=== PATIENT | female | born 1975 | race African-American/Black ===

== ENCOUNTER 2024-05-19 02:38 | Emergency (ER) | payer OTHER ==
[2024-05-19 03:50] VITALS: BP 124/75; PULSE 98; RESP 18; TEMP 98.6; BMI 20.7
[2024-05-19] MEDS ORDERED: ONDANSETRON *ODT* 4 MG TABLET ONE (04:05)
[2024-05-19] MEDS: ONDANSETRON *ODT* 4 MG TABLET SL ONE (04:08)
[2024-05-19 04:49] LABS: EOS % 1.8 % (0-4.5); HEMATOCRIT 38.7 % (32.4-45.2); LYMPH % 38.4 % (8-40); MCH 31.5 pg (25.7-33.7); MCHC 33.6 g/dl (32.0-36.0); MEAN CELL VOLUME 93.7 fl (80-96); MONO % 13.4 % (3.8-10.2); NEUT % 45.4 % (42.8-82.8); PLATELET COUNT 222 10^3/uL (134-434); RBC 4.13 M/mm3 (3.60-5.2); RDW 14.7 % (11.6-15.6); WHITE BLOOD COUNT 7.2 K/mm3 (4.0-10.0)
[2024-05-19 04:55] LABS: POTASSIUM 3.7 mmol/L (3.5-5.1)
[2024-05-19 04:57] LABS: CALCIUM 9.4 mg/dL (8.5-10.1)
[2024-05-19 04:58] LABS: ALBUMIN 3.5 g/dl (3.4-5.0); BLOOD UREA NITROGEN 20.4 mg/dL (7-18)
[2024-05-19 05:01] LABS: CREATININE 0.9 mg/dL (0.55-1.3)
[2024-05-19 05:03] LABS: BILIRUBIN,TOTAL 0.2 mg/dL (0.2-1)
[2024-05-19] MEDS ORDERED: FAMOTIDINE 20 MG TABLET ONE (05:06)
[2024-05-19] MEDS ORDERED: ACETAMINOPHEN 325 MG TABLET (FP) ONE (05:07)
[2024-05-19] MEDS ORDERED: MAG HYDROX/AL HYDROX/SIMETH 30 ML UNIT-DOSE CUP ONE (05:07)
[2024-05-19] MEDS: FAMOTIDINE 20 MG TABLET PO ONE (05:17)
[2024-05-19] MEDS: MAG HYDROX/AL HYDROX/SIMETH 30 ML UNIT-DOSE CUP PO ONE (05:17)
[2024-05-19] MEDS: ACETAMINOPHEN 325 MG TABLET (FP) PO ONE (05:17)
== END 2024-05-19 05:30 | disposition home or self-care (01) ==
LOC: JER 02:38
DX: R11.2 Nausea with vomiting, unspecified (principal); R19.7 Diarrhea, unspecified; R10.30 Lower abdominal pain, unspecified; M79.10 Myalgia, unspecified site
CPT/HCPCS: 36415; 80053; 84703; 85025; 99283-25; Q0162